=== PATIENT | male | born 1975 | race Caucasian/White ===

== ENCOUNTER 2016-05-23 13:35 | Emergency (ER) | payer BC ==
[2016-05-23 14:24] VITALS: BP 150/98
--- NOTE | 2016-05-23 15:41 | EDM.PDOC ---
ED HISTORY OF PRESENT ILLNESS - General Chief Complaint: Neck Problem Stated Complaint: NECK PAIN Time Seen by Provider: 05/23/16 15:36 Source: Reports: Patient, RN notes reviewed History Limitations: Reports: No limitations - History of Present Illness INITIAL COMMENTS - FREE TEXT/NARRATIVE: 40-year-old male with chronic neck pain. MRI of the neck on with findings of disc bulge at C4-5 just abutting the anterior cervical cord and osteophyte complex right side C5-6 Has been using tramadol for pain control with minimal success. Last took it at 9 AM No difficulty with ambulation and notes some tingling into the right shoulder area. Severity: severe Location, General: Reports: neck - Related Data Allergies/ADRs: Allergies Allergy/AdvReac Type Severity Reaction Status Date / Time No Known Allergies Allergy Verified 03/16/16 18:25 Home Meds: Home Meds Acetaminophen [Tylenol Extra Strength] 1,000 mg PO Q6H PRN 12/03/13 [History] Ibuprofen 800 mg PO TID PRN 12/03/13 [History] DULoxetine [Cymbalta] 120 mg PO DAILY 09/17/15 [History] traMADol [Ultram] 50 mg PO QID PRN 03/16/16 [History] Losartan [Cozaar] 100 mg PO DAILY 05/23/16 [History] Nebivolol [Bystolic] 10 mg PO DAILY 05/23/16 [History] amLODIPine Besylate [Amlodipine Besylate] 5 mg PO DAILY 05/23/16 [History] Past Medical History Cardiovascular History: Reports: Hypertension Gastrointestinal History: Reports: Irritable bowel syndrome Musculoskeletal History: Reports: Arthritis, Back pain, chronic, Neck pain, chronic Other Musculoskeletal History: bulging disc in neck Psychiatric History: Reports: Anxiety - Past Surgical History Neurological Surgical History: Reports: Spinal fusion, Other (see below) Other Neurological Surgeries/Procedures: L4-L5 disc replacement Musculoskeletal Surgical History: Reports: Other (see below) Other Musculoskeletal Surgeries/Procedures:: disc replacement L4,L5 Social & Family History - Family History Family Medical History: Noncontributory - Tobacco Use Smoking Status *Q: Never Smoker Years of Tobacco use: 20 Used Tobacco, but Quit: No Month Tobacco Last Used: august Second Hand Smoke Exposure: No - Caffeine Use Caffeine Use: Reports: Soda - Alcohol Use Days Per Week of Alcohol Use: 1 Number of Drinks Per Day: 2 Total Drinks Per Week: 2 - Recreational Drug Use Recreational Drug Use: No Drug Use in Last 12 Months: Yes Recreational Drug Type: Reports: Other (see below) Recreational Drug Use Frequency: Not Used In Over 5 Months ED ROS GENERAL - Review of Systems Review Of Systems: See Below Constitutional: Reports: no symptoms HEENT: Reports: No symptoms Respiratory: Reports: no symptoms Cardiovascular: Reports: No symptoms Endocrine: Reports: no symptoms GI/Abdominal: Reports: No symptoms : Reports: no symptoms Musculoskeletal: Reports: neck pain Skin: Reports: no symptoms Neurological: Reports: numbness, tingling Psychiatric: Reports: No symptoms ED EXAM, GENERAL - Physical Exam Exam: See Below Exam Limited By: No limitations General Appearance: alert, WD/WN, no apparent distress Neck: normal inspection, supple, limited range of motion, tender lateral, other (Holds neck very stiffly) Extremities: other (Has normal strength in deltoids biceps and triceps) Neurological: alert, oriented, CN II-XII intact, normal cognition Course - Vital Signs Text/Narrative:: Reviewed MRI accomplished in the last 3 days Patient with increased neck pain but no history of trauma Tramadol without good control of symptoms Placed in soft neck collar to reduce spasm Increased pain control to hydrocodone acetaminophen 5/325 one tablet every 6 hours when necessary pain Keep appointment to see Dr. Anjel Arenas this Last Recorded V/S: Last Vital Signs Temp 98.8 F 05/23/16 14:22 Pulse 86 05/23/16 14:22 Resp 14 05/23/16 14:22 BP 150/98 H 05/23/16 14:22 Pulse Ox 96 05/23/16 14:22 Departure - Departure Time of Disposition: 15:41 Disposition: Home, Self-Care 01 Condition: good Clinical Impression: Cervical disc disease Forms: ED Department Discharge Additional Instructions: Wear his soft collar x3 days Use hydrocodone for pain control See Dr. Arenas on
== END 2016-05-23 15:53 | disposition home or self-care (01) ==
LOC: JP.ED 13:35
DX: M50.90 Cervical disc disorder, unspecified, unspecified cervical region (principal); I10 Essential (primary) hypertension; Z79.899 Other long term (current) drug therapy; Z98.890 Other specified postprocedural states
CPT/HCPCS: 99283

== ENCOUNTER 2016-06-21 07:30 | Inpatient (IN) | payer BC, MEDICAID ==
[2016-06-30] MEDS: Lactated Ringers 1,000 ML IV SCH ×2 (06:32→13:18)
[2016-06-30] MEDS ORDERED: Povidone-Iodine 10% Soln 118.25 ML Bottle ONE (06:58)
[2016-06-30] MEDS ORDERED: Bupivacaine 0.5%/EPINEPHrine 1:200,000 50 ML MDV ONE (06:58)
[2016-06-30] MEDS ORDERED: Midazolam 1 MG/ML 2 ML SDV ONE (07:02)
[2016-06-30] MEDS ORDERED: fentaNYL 250 MCG/5 ML SDV ONE ×4 (07:02→09:48)
[2016-06-30] MEDS ORDERED: Propofol 200 MG/20 ML SDV ONE ×5 (07:02→09:59)
[2016-06-30] MEDS ORDERED: Ondansetron 4 MG/2 ML SDV ONE (07:02)
[2016-06-30] MEDS ORDERED: Succinylcholine/Normal Saline 200 MG/10 ML Syringe ONE (07:02)
[2016-06-30] MEDS ORDERED: Rocuronium 50 MG/5 ML Vial ONE (07:02)
[2016-06-30] MEDS ORDERED: Dexamethasone 4 MG/ML SDV ONE (07:02)
[2016-06-30] MEDS ORDERED: ceFAZolin 2 GM in Premix Bag 1 BAG IV ONE (07:15)
[2016-06-30] MEDS ORDERED: ceFAZolin 2 GM in Sodium Chloride 0.9% 50 ML IV ONE (07:15)
[2016-06-30] MEDS: Tranexamic Acid 1,000 MG in Sodium Chloride 0.9% 50 ML IV ONE ×2 (07:40→21:10)
[2016-06-30] MEDS ORDERED: Lactated Ringers 1,000 ML ONE (07:55)
[2016-06-30] MEDS: Thrombin (Bovine) 5,000 Unit Kit ONE ×2 (08:10→09:40)
[2016-06-30] MEDS ORDERED: Neostigmine Methylsulfate 1 MG/ML 5 ML Syringe ONE (08:20)
[2016-06-30] MEDS ORDERED: Tranexamic Acid 1,000 MG in Sodium Chloride 0.9% 50 ML IV ONE (10:30)
[2016-06-30] MEDS ORDERED: fentaNYL 100 MCG/2 ML SDV IVPUSH ONE (10:42)
[2016-06-30] MEDS ORDERED: Zolpidem 5 MG Tab PO PRN ×2 (10:53→11:43)
[2016-06-30] MEDS ORDERED: Naloxone 0.4 MG/ML SDV IVPUSH PRN ×2 (10:53)
[2016-06-30] MEDS ORDERED: Acetaminophen/oxyCODONE 325-5 MG Tab PO PRN (10:53)
[2016-06-30] MEDS ORDERED: Magnesium Hydroxide 400 MG/5 ML Susp 30 ML Cup PO PRN ×2 (10:53→11:43)
[2016-06-30] MEDS ORDERED: Aluminum Hydroxide/Magnesium Hydroxide/Simethicone Susp 30 ML Cup PO PRN ×2 (10:53→11:43)
[2016-06-30] MEDS ORDERED: Ondansetron 4 MG/2 ML SDV IVPUSH PRN ×2 (10:53→11:43)
[2016-06-30] MEDS ORDERED: Sodium Chloride 0.9% 10 ML Syringe FLUSH PRN ×2 (10:53→11:43)
[2016-06-30] MEDS ORDERED: HYDROmorphone 1 MG/ML Syringe IVPUSH PRN (10:53)
[2016-06-30] MEDS ORDERED: Sennosides 8.6 MG Tab PO PRN ×2 (10:53→11:43)
[2016-06-30] MEDS ORDERED: ceFAZolin 2 GM in Sodium Chloride 0.9% 50 ML IV SCH (11:00)
[2016-06-30] MEDS: HYDROmorphone 1 MG/ML Syringe IVPUSH PRN ×6 (11:40→23:43)
[2016-06-30] MEDS ORDERED: HYDROmorphone 1 MG/ML Syringe ONE (11:48)
[2016-06-30] MEDS: Acetaminophen/oxyCODONE 325-5 MG Tab PO PRN ×3 (12:19→20:42)
[2016-06-30] MEDS ORDERED: Benzocaine/Cetylpyridinium/Menthol Lozenge MUCMEM PRN (14:34)
[2016-06-30] MEDS ORDERED: Naloxone 0.4 MG/ML SDV ONE (15:16)
[2016-06-30] MEDS: hydrOXYzine HCl 25 MG Tab PO SCH ×2 (15:49→22:48)
[2016-06-30] MEDS ORDERED: Losartan 50 MG Tab PO ONE (16:00)
[2016-06-30] MEDS: Dexamethasone 4 MG/ML SDV IVPUSH SCH ×2 (16:05→22:50)
--- NOTE | 2016-06-30 16:05 | PCM.PN ---
- General Info Date of Service: 06/30/16 - Review of Systems HEENT: Reports: other (Neck pain) Pulmonary: Denies: shortness of breath Neurological: Denies: Numbness, Paresthesia, Tingling Systems Review Comment:: Iglesia isn't evaluated in the postoperative period. He is currently complaining of moderate to moderately severe right-sided neck pain in the area of his surgery. He currently does not have numbness or tingling that radiates down either arm or either leg. No paresthesias. No complaints of shortness of breath. Blood pressure has been moderately elevated but has been trending down after usual medications were administered. He does report that he was out of 2 of his blood pressure medications for approximately the last week. - Patient Data Vitals - most recent: Last Vital Signs Temp 36.4 C 06/30/16 14:20 Pulse 87 06/30/16 13:35 Resp 18 06/30/16 14:20 BP 141/96 H 06/30/16 15:57 Pulse Ox 96 06/30/16 14:20 Weight - most recent: 127.686 kg I&O - last 24 hours: Intake & Output 06/30/16 06/30/16 06/30/16 06:59 14:59 22:59 Intake Total 100 600 Output Total 0 Balance 100 600 Lab Results last 24 hrs: Laboratory Results - last 24 hr 06/30/16 Range/Units 06:00 Blood Type O POSITIVE Gel Antibody Screen Negative Med Orders - Current: Current Medications Al Hydroxide/Mg Hydroxide (Mag-Al Plus) 30 ml PO Q4H PRN PRN Reason: Indigestion Benzocaine/Menthol (Cepacol Sore Throat) 1 lozenge MUCMEM NOW PRN PRN Reason: Sore Throat Last Admin: 06/30/16 15:49 Dose: 1 tab Dexamethasone (Dexamethasone) 10 mg IVPUSH QID DERRICK Diazepam (Valium) 5 mg IVPUSH Q6H PRN PRN Reason: Spasms Last Admin: 06/30/16 12:18 Dose: 5 mg Hydromorphone HCl (Dilaudid) 1 mg IVPUSH Q2H PRN PRN Reason: Pain Last Admin: 06/30/16 14:27 Dose: 1 mg Hydroxyzine HCl (Atarax) 50 mg PO QID DERRICK Last Admin: 06/30/16 15:49 Dose: 50 mg Lactated Ringer's (Ringers, Lactated) 1,000 mls @ 0 mls/hr IV ASDIRECTED [facility] PRN Reason: KVO Last Admin: 06/30/16 13:18 Dose: 25 mls/hr Cefazolin Sodium 2 gm/ Sodium (Chloride) 50 mls @ 100 mls/hr IV Q8H [facility] Stop: 07/01/16 08:29 Losartan Potassium (Cozaar) 100 mg PO DAILY [facility] Magnesium Hydroxide (Milk Of Magnesia) 30 ml PO BID PRN PRN Reason: Constipation Nebivolol (Bystolic) 10 mg PO DAILY [facility] Ondansetron HCl (Zofran) 8 mg IVPUSH Q4H PRN PRN Reason: Nausea/Vomiting Last Admin: 06/30/16 14:26 Dose: 8 mg Oxycodone/Acetaminophen (Percocet 325-5 Mg) 2 tab PO Q4H PRN PRN Reason: Pain Last Admin: 06/30/16 12:19 Dose: 2 tab Senna (Senna) 8.6 mg PO BID PRN PRN Reason: Constipation Sodium Chloride (Saline Flush) 10 ml FLUSH ASDIRECTED PRN PRN Reason: Keep Vein Open Zolpidem Tartrate (Ambien) 5 mg PO BEDTIME PRN PRN Reason: Sleep Discontinued Medications Al Hydroxide/Mg Hydroxide (Mag-Al Plus) 30 ml PO Q4H PRN PRN Reason: Indigestion Bupivacaine HCl/Epinephrine Bitart (Marcaine 0.5%/Epinephrine 1:200,000) Confirm Administered Dose 50 ml .ROUTE .STK-MED ONE Stop: 06/30/16 06:59 Last Admin: 06/30/16 08:38 Dose: 10 ml Dexamethasone (Dexamethasone) Confirm Administered Dose 4 mg .ROUTE .STK-MED ONE Stop: 06/30/16 07:03 Diazepam (Valium) 5 mg IVPUSH Q6H PRN PRN Reason: Spasms Fentanyl (Sublimaze) Confirm Administered Dose 500 mcg .ROUTE .STK-MED ONE Stop: 06/30/16 07:03 Fentanyl (Sublimaze) Confirm Administered Dose 250 mcg .ROUTE .STK-MED ONE Stop: 06/30/16 07:55 Fentanyl (Sublimaze) Confirm Administered Dose 250 mcg .ROUTE .STK-MED ONE Stop: 06/30/16 08:20 Fentanyl (Sublimaze) Confirm Administered Dose 250 mcg .ROUTE .STK-MED ONE Stop: 06/30/16 09:49 Fentanyl (Sublimaze) 100 mcg IVPUSH ONETIME ONE Stop: 06/30/16 10:43 Last Admin: 06/30/16 10:48 Dose: 100 mcg Glycopyrrolate () Confirm Administered Dose 1 mg .ROUTE .STK-MED ONE Stop: 06/30/16 08:21 Hydromorphone HCl (Dilaudid) 1 mg IVPUSH Q2H PRN PRN Reason: Pain Cefazolin Sodium 2 gm/ Sodium (Chloride) 50 mls @ 100 mls/hr IV ONETIME ONE Stop: 06/30/16 07:44 Last Admin: 06/30/16 07:19 Dose: 100 mls/hr Tranexamic Acid 1,000 mg/ (Sodium Chloride) 60 mls @ 240 mls/hr IV ONETIME ONE Stop: 06/30/16 07:59 Last Admin: 06/30/16 07:40 Dose: 240 mls/hr Tranexamic Acid 1,000 mg/ (Sodium Chloride) 60 mls @ 240 mls/hr IV ONETIME ONE Stop: 06/30/16 10:44 Last Admin: 06/30/16 10:41 Dose: 240 mls/hr Lactated Ringer's (Ringers, Lactated) Confirm Administered Dose 1,000 mls @ as directed .ROUTE .STK-MED ONE Stop: 06/30/16 07:56 Cefazolin Sodium 2 gm/ Sodium (Chloride) 50 mls @ 100 mls/hr IV Q8H [facility] Stop: 07/01/16 03:29 Losartan Potassium (Cozaar) 100 mg PO ONETIME ONE Stop: 06/30/16 16:01 Last Admin: 06/30/16 15:57 Dose: 100 mg Magnesium Hydroxide (Milk Of Magnesia) 30 ml PO BID PRN PRN Reason: Constipation Midazolam HCl (Versed 1 Mg/Ml) Confirm Administered Dose 2 mg .ROUTE .STK-MED ONE Stop: 06/30/16 07:03 Naloxone HCl (Narcan) 0.2 mg IVPUSH ONETIME PRN PRN Reason: Oversedation Stop: 06/30/16 10:54 Naloxone HCl (Narcan) 0.2 mg IVPUSH ONETIME PRN PRN Reason: Oversedation Stop: 06/30/16 10:54 Naloxone HCl (Narcan) Confirm Administered Dose 0.4 mg .ROUTE .STK-MED ONE Stop: 06/30/16 15:17 Nebivolol (Bystolic) 10 mg PO ONETIME ONE Stop: 06/30/16 16:01 Neostigmine Methylsulfate (Neostigmine) Confirm Administered Dose 5 mg .ROUTE .STK-MED ONE Stop: 06/30/16 08:21 Ondansetron HCl (Zofran) Confirm Administered Dose 4 mg .ROUTE .STK-MED ONE Stop: 06/30/16 07:03 Ondansetron HCl (Zofran) 8 mg IVPUSH Q4H PRN PRN Reason: Nausea/Vomiting Oxycodone/Acetaminophen (Percocet 325-5 Mg) 2 tab PO Q4H PRN PRN Reason: Pain Povidone Iodine (Betadine 10% Soln) Confirm Administered Dose 1 ml .ROUTE .STK- MED ONE Stop: 06/30/16 06:59 Propofol (Diprivan 20 Ml) Confirm Administered Dose 200 mg .ROUTE .STK-MED ONE Stop: 06/30/16 07:03 Propofol (Diprivan 20 Ml) Confirm Administered Dose 600 mg .ROUTE .STK-MED ONE Stop: 06/30/16 07:37 Propofol (Diprivan 20 Ml) Confirm Administered Dose 600 mg .ROUTE .STK-MED ONE Stop: 06/30/16 08:19 Propofol (Diprivan 20 Ml) Confirm Administered Dose 600 mg .ROUTE .STK-MED ONE Stop: 06/30/16 09:04 Propofol (Diprivan 20 Ml) Confirm Administered Dose 200 mg .ROUTE .STK-MED ONE Stop: 06/30/16 10:00 Rocuronium Seligman (Zemuron) Confirm Administered Dose 50 mg .ROUTE .STK-MED ONE Stop: 06/30/16 07:03 Senna (Senna) 8.6 mg PO BID PRN PRN Reason: Constipation Sodium Chloride (Saline Flush) 10 ml FLUSH ASDIRECTED PRN PRN Reason: Keep Vein Open Succinylcholine Chloride (Succinylcholine In Ns Pf) Confirm Administered Dose 200 mg .ROUTE .STK-MED ONE Stop: 06/30/16 07:03 Thrombin (Thrombin-Jmi) Confirm Administered Dose 10,000 unit .ROUTE .STK-MED ONE Stop: 06/30/16 06:58 Last Admin: 06/30/16 09:40 Dose: 5,000 unit Zolpidem Tartrate (Ambien) 5 mg PO BEDTIME PRN PRN Reason: Sleep - Exam Quality Assessment: No: supplemental oxygen General: alert, oriented, cooperative, mild distress Neck: supple, other (Dry intact surgical dressing right lateral neck) Lungs: Clear to auscultation, Normal respiratory effort Cardiovascular: Regular Rate, Regular Rhythm Abdomen: soft, no distension Extremities: no edema, no cyanosis Skin: warm, dry Psy/Mental Status: alert, normal affect - Problem List Review Problem List Initiated/Reviewed/Updated: Yes - Plan Plan:: Assessment and Plan - Status post C4-5/C5-6 fusion with anterior approach - moderate pain but otherwise clinically doing well. -Postop cares per orthopedic services and Essential hypertension - monitor blood pressure elevation postoperatively but seems to be improving with pain control. He did receive his usual antihypertensives but later in the day than usual. -Continue home meds Chronic pain syndrome - history of chronic neck and back pain. Hopefully the surgery will help with his chronic back pain. He should be receiving plenty of coverage for his chronic pain with current acute pain management. Disposition - anticipate discharge to home after the hospital stay Daniel Hairston M.D.
[2016-06-30] MEDS: ceFAZolin 2 GM in Sodium Chloride 0.9% 50 ML IV SCH ×2 (16:30→23:43)
--- NOTE | 2016-06-30 17:14 | OR ---
DATE OF PROCEDURE: 06/30/2016 PREOPERATIVE DIAGNOSIS: Cervical stenosis C4-5 and C5-6. POSTOPERATIVE DIAGNOSIS: Cervical stenosis C4-5 and C5-6. PROCEDURE: 1. C4-5 and C5-6 anterior cervical diskectomy and fusion. 2. Placement of interbody devices at C4-5 and C5-6. 3. Segmental fixation C4-5 and C5-6. 4. Use of operative microscope [id number]. CLIENT EXPERIENCE ADMINISTRATOR: Irma Koroma NP. FLUID: Lactated Ringer solution. ESTIMATED BLOOD LOSS: 25 mL. COMPLICATIONS: None. SPECIMEN: None. DISCHARGE DISPOSITION: Stable to PACU. HISTORY AND INDICATIONS FOR THE PROCEDURE: The patient was seen preoperatively in the clinic. He had failed nonoperative treatment. Preoperative imaging confirmed the above- mentioned diagnosis. Risks and benefits of procedure were explained to the patient. Informed consent was obtained. DETAILS OF PROCEDURE: The patient was seen preoperatively by myself and the anesthesia staff in the preoperative holding area where the operative site was marked. He was brought to the operative suite by the anesthesia staff where general anesthesia was administered. The patient was then positioned with all extremities well padded. His arms were tucked at the side after neuro monitoring leads had been placed. I did use a blanket under his shoulders and then taped his shoulders to his side making sure that the neck was in neutral extension. We then took a fluoroscopy image confirming that his neck was in usual extension that we could see the vertebral bodies. The patient was then prepped and draped in a sterile manner. Time-out was called identifying the correct patient, correct procedure, the correct site, and the antibiotics had been within an appropriate period of time. The fluoroscopy end was sterilely draped. The microscope was sterilely draped. Lateral fluoroscopy was used to visualize the C5-6 intervertebral space using a #1 Paia. I then made an oblique incision just lateral to the sternocleidomastoid muscle extending approximately 2.5 inches. This was carried down to the platysma. Bleeding was controlled with Bovie electrocautery. Weitlaner retractor was used for a traction. I then went through the platysma with Bovie electrocautery. The external jugular was identified running right to the middle of our incision. I used a two 3-0 silk sutures to ligate the external jugular. No bleeding was encountered. The remainder of the incision was carried out with Bovie electrocautery and bipolar electrocautery. I then used blunt dissection down to the prevertebral space and then palpated what I thought was the C4-5 interval. We then took fluoroscopic image, thought it was the C5-6 interval, it was C6-7. I then moved up to C5-6 and confirmed the correct level before any further dissection takes place. After confirming the C5-6 level, I then used the Cloward for retraction, and carefully I released the insertion of the longus colli muscles on the medial insertions and exposed the disk space with Bovie electrocautery. I then used a 15 blade to incise the C5-6 anterior annulus and then removed as much of this as I could using pituitaries followed by curette and #3 Kerrison using and removing as well a portion of the anterior-inferior lip of the superior vertebral body. After this had been accomplished, and we were down to the posterior longitudinal ligament, I then placed a small amount of thrombin-soaked Gelfoam in the back of the intervertebral space and then repeated the procedure at C4-5. After removing our retractors, I did use the Shadow-line retractor after exposing the space better after the Cloward was used. After preparing the C4-5 interspace, I then brought in the operating microscope and removed any extra disk material that was visualized as well as undermining the inferior-posterior lip of the superior vertebral body with a 3-0 angle curette and then removing that lip with #2 Kerrison's. I then removed the superior-posterior lip of the inferior vertebral body and then divided the posterior longitudinal ligament. I then brought the curette out the foramen bilaterally to ensure that they were free. I then prepared the disk space and left a small amount of autograft within the disk space and then trialed up to a 9, and then placed a 9 globus Coalition implant which was 7 degrees 12 x 14 as well as some Signify Bioactive Crunch. In the implant, I confirmed good placement and then placed two 16 mm screws ensuring that they did not violate the posterior vertebral body. We then moved down to C5-6 and performed the same procedure with the operating microscope trialing again to a 9 and inserting the 9 mm Coalition implant 7 degree 12 x 14 and inserted two 16 mm screws. After this had been completed, we took final films. I then copiously irrigated with 2 L of Betadine infused irrigation. I took time to ensure that there was no bleeding at the medial portion of the longus colli muscles. If there was, it was controlled by bipolar electrocautery. We then inserted some FloSeal and after waiting 1- 2 minutes, inserted Ray-Manohar to remove any excess FloSeal. After this had been accomplished, I placed a drain in the prevertebral space. I carried out the lateral aspect of the incision and then placed three 2-0 Vicryl sutures through the platysma followed by 3-0 Monocryl subcuticular sutures followed by Steri-Strips and a sterile dressing. The patient was allowed to awaken from general anesthesia and taken to the PACU in stable condition. Kevin Arenas DO /[id number]
[2016-07-01] MEDS: Acetaminophen/oxyCODONE 325-5 MG Tab PO PRN ×2 (00:54→05:14)
[2016-07-01] MEDS: HYDROmorphone 1 MG/ML Syringe IVPUSH PRN ×3 (01:47→07:34)
[2016-07-01] MEDS: Dexamethasone 4 MG/ML SDV IVPUSH SCH ×2 (05:15→09:18)
[2016-07-01] MEDS: hydrOXYzine HCl 25 MG Tab PO SCH ×2 (05:15→09:16)
[2016-07-01 07:33] VITALS: BP 115/90
[2016-07-01] MEDS: ceFAZolin 2 GM in Sodium Chloride 0.9% 50 ML IV SCH (08:20)
[2016-07-01] MEDS ORDERED: Losartan 50 MG Tab PO SCH (09:00)
--- NOTE | 2016-07-01 09:00 | PCM.DCSUM1 ---
Discharge Summary - Discharge Data Discharge Date: 07/01/16 Discharge Disposition: Home, Self-Care 01 Condition: Good - Discharge Diagnosis/Problem(s) (1) Status post cervical discectomy SNOMED Code(s): 313891585, [id number] ICD Code: Z98.890 - OTHER SPECIFIED POSTPROCEDURAL STATES Status: Acute Current Visit: Yes Problem Details: Fision - Patient Summary/Data Consults: Consultations 06/30/16 10:53 OT Evaluation and Treatment [CONS] Routine Please Evaluate and Treat. OT Reason for Consult: Strengthening This query below is only for informational purposes and is not editable. PT Evaluation and Treatment [CONS] Routine Please Evaluate and Treat. PT Reason for Consult: Strengthening This query below is only for informational purposes and is not editable. - Patient Instructions Diet: Regular Diet as Tolerated Activity: Apply Ice, As Tolerated Driving: May Drive Today (If not on any pain medication) Showering/Bathing: May Shower Wound/Incision Care: Keep Operative Site/Wound Site Clean and Dry, Change Dressing Daily Notify Provider of: Fever, Increased Pain, Swelling and Redness - Discharge Plan Prescriptions/Med Rec: Acetaminophen/oxyCODONE [Percocet 325-5 MG] 1 tab PO Q4H PRN #90 tablet PRN Reason: Pain Diazepam [Valium] 5 mg PO BID #50 tablet hydrOXYzine HCl [hydrOXYzine] 50 mg PO QID PRN #60 tablet PRN Reason: Spasms Home Medications: Home Meds Acetaminophen [Tylenol Extra Strength] 1,000 mg PO Q6H PRN 12/03/13 [History] Ibuprofen 800 mg PO TID PRN 12/03/13 [History] DULoxetine [Cymbalta] 120 mg PO DAILY 09/17/15 [History] traMADol [Ultram] 50 mg PO QID PRN 03/16/16 [History] Losartan [Cozaar] 100 mg PO DAILY 05/23/16 [History] Nebivolol [Bystolic] 10 mg PO DAILY 05/23/16 [History] amLODIPine Besylate [Amlodipine Besylate] 5 mg PO DAILY 05/23/16 [History] Acetaminophen/oxyCODONE [Percocet 325-5 MG] 1 tab PO Q4H PRN #90 tablet [Rx] Diazepam [Valium] 5 mg PO BID #50 tablet 07/01/16 [Rx] Losartan [Cozaar] 100 mg PO DAILY tablet 07/01/16 [Rx] hydrOXYzine HCl [hydrOXYzine] 50 mg PO QID PRN #60 tablet 07/01/16 [Rx] Referrals: Kevin Arenas DO [Physician] - (Follow up with ortho in 2 weeks. ) - Discharge Summary/Plan Comment Discharge Summary/Plan Comment: Patient is doing well. Assessment is negative. He is ambulating well. Pain is managed with pain medication. He is to continue to improve his ambulation and pain throughout the day and will be discharged later today. - Patient Data Vitals - Most Recent: Last Vital Signs Temp 36.6 C 07/01/16 07:29 Pulse 98 07/01/16 08:21 Resp 16 07/01/16 07:29 BP 115/90 07/01/16 08:22 Pulse Ox 90 L 07/01/16 07:51 Weight - Most Recent: 281 lb 8 oz I&O - Last 24 hours: Intake & Output 06/30/16 07/01/16 07/01/16 22:59 06:59 14:59 Intake Total 1768 2155 620 Output Total 1975 1200 550 Balance -207 955 70 Lab Results - Last 24 hrs: Laboratory Results - last 24 hr 07/01/16 07/01/16 Range/Units 05:30 05:30 WBC 18.9 H (4.5-11.0) K/uL RBC 5.03 (4.30-5.90) M/uL Hgb 14.7 (12.0-15.0) g/dL Hct 41.8 (40.0-54.0) % MCV 83 (80-98) fL MCH 29 (27-31) pg MCHC 35 (32-36) % Plt Count 370 (150-400) K/uL Neut % (Auto) 88 H (36-66) % Lymph % (Auto) 8 L (24-44) % [place] % (Auto) 4 (2-6) % Eos % (Auto) 0 L (2-4) % Baso % (Auto) 0 (0-1) % Sodium 141 (140-148) mmol/L Potassium 4.1 (3.6-5.2) mmol/L Chloride 104 (100-108) mmol/L Carbon Dioxide 28 (21-32) mmol/L Anion Gap 9.3 (5.0-14.0) mmol/L BUN 12 (7-18) mg/dL Creatinine 1.0 (0.8-1.3) mg/dL Est Cr Clr Drug Dosing 101.39 mL/min Estimated GFR (MDRD) > 60 (>60) Glucose 161 H (74-106) mg/dL Calcium 8.5 (8.5-10.1) mg/dL Med Orders - Current: Current Medications Al Hydroxide/Mg Hydroxide (Mag-Al Plus) 30 ml PO Q4H PRN PRN Reason: Indigestion Benzocaine/Menthol (Cepacol Sore Throat) 1 lozenge MUCMEM NOW PRN PRN Reason: Sore Throat Last Admin: 06/30/16 15:49 Dose: 1 tab Dexamethasone (Dexamethasone) 10 mg IVPUSH QID [facility] Stop: 07/01/16 10:01 Last Admin: 07/01/16 05:15 Dose: 10 mg Diazepam (Valium) 5 mg IVPUSH Q6H PRN PRN Reason: Spasms Last Admin: 07/01/16 03:18 Dose: 5 mg Hydromorphone HCl (Dilaudid) 1 mg IVPUSH Q2H PRN PRN Reason: Pain Last Admin: 07/01/16 07:34 Dose: 1 mg Hydroxyzine HCl (Atarax) 50 mg PO QID [facility] Last Admin: 07/01/16 05:15 Dose: 50 mg Lactated Ringer's (Ringers, Lactated) 1,000 mls @ 0 mls/hr IV ASDIRECTED [facility] PRN Reason: KVO Last Admin: 06/30/16 13:18 Dose: 25 mls/hr Losartan Potassium (Cozaar) 100 mg PO DAILY [facility] Last Admin: 07/01/16 08:22 Dose: 100 mg Magnesium Hydroxide (Milk Of Magnesia) 30 ml PO BID PRN PRN Reason: Constipation Nebivolol (Bystolic) 10 mg PO DAILY [facility] Last Admin: 07/01/16 08:21 Dose: 10 mg Ondansetron HCl (Zofran) 8 mg IVPUSH Q4H PRN PRN Reason: Nausea/Vomiting Last Admin: 06/30/16 14:26 Dose: 8 mg Oxycodone/Acetaminophen (Percocet 325-5 Mg) 2 tab PO Q4H PRN PRN Reason: Pain Last Admin: 07/01/16 05:14 Dose: 2 tab Senna (Senna) 8.6 mg PO BID PRN PRN Reason: Constipation Sodium Chloride (Saline Flush) 10 ml FLUSH ASDIRECTED PRN PRN Reason: Keep Vein Open Zolpidem Tartrate (Ambien) 5 mg PO BEDTIME PRN PRN Reason: Sleep Discontinued Medications Al Hydroxide/Mg Hydroxide (Mag-Al Plus) 30 ml PO Q4H PRN PRN Reason: Indigestion Bupivacaine HCl/Epinephrine Bitart (Marcaine 0.5%/Epinephrine 1:200,000) Confirm Administered Dose 50 ml .ROUTE .STK-MED ONE Stop: 06/30/16 06:59 Last Admin: 06/30/16 08:38 Dose: 10 ml Dexamethasone (Dexamethasone) Confirm Administered Dose 4 mg .ROUTE .STK-MED ONE Stop: 06/30/16 07:03 Diazepam (Valium) 5 mg IVPUSH Q6H PRN PRN Reason: Spasms Fentanyl (Sublimaze) Confirm Administered Dose 500 mcg .ROUTE .STK-MED ONE Stop: 06/30/16 07:03 Fentanyl (Sublimaze) Confirm Administered Dose 250 mcg .ROUTE .STK-MED ONE Stop: 06/30/16 07:55 Fentanyl (Sublimaze) Confirm Administered Dose 250 mcg .ROUTE .STK-MED ONE Stop: 06/30/16 08:20 Fentanyl (Sublimaze) Confirm Administered Dose 250 mcg .ROUTE .STK-MED ONE Stop: 06/30/16 09:49 Fentanyl (Sublimaze) 100 mcg IVPUSH ONETIME ONE Stop: 06/30/16 10:43 Last Admin: 06/30/16 10:48 Dose: 100 mcg Glycopyrrolate () Confirm Administered Dose 1 mg .ROUTE .STK-MED ONE Stop: 06/30/16 08:21 Hydromorphone HCl (Dilaudid) 1 mg IVPUSH Q2H PRN PRN Reason: Pain Cefazolin Sodium 2 gm/ Sodium (Chloride) 50 mls @ 100 mls/hr IV ONETIME ONE Stop: 06/30/16 07:44 Last Admin: 06/30/16 07:19 Dose: 100 mls/hr Tranexamic Acid 1,000 mg/ (Sodium Chloride) 60 mls @ 240 mls/hr IV ONETIME ONE Stop: 06/30/16 07:59 Last Admin: 06/30/16 21:10 Dose: Not Given Tranexamic Acid 1,000 mg/ (Sodium Chloride) 60 mls @ 240 mls/hr IV ONETIME ONE Stop: 06/30/16 10:44 Last Admin: 06/30/16 10:41 Dose: 240 mls/hr Lactated Ringer's (Ringers, Lactated) Confirm Administered Dose 1,000 mls @ as directed .ROUTE .STK-MED ONE Stop: 06/30/16 07:56 Cefazolin Sodium 2 gm/ Sodium (Chloride) 50 mls @ 100 mls/hr IV Q8H DERRICK Stop: 07/01/16 03:29 Last Admin: 06/30/16 23:25 Dose: Not Given Cefazolin Sodium 2 gm/ Sodium (Chloride) 50 mls @ 100 mls/hr IV Q8H DERRICK Stop: 07/01/16 08:29 Last Admin: 07/01/16 08:20 Dose: 100 mls/hr Losartan Potassium (Cozaar) 100 mg PO ONETIME ONE Stop: 06/30/16 16:01 Last Admin: 06/30/16 15:57 Dose: 100 mg Magnesium Hydroxide (Milk Of Magnesia) 30 ml PO BID PRN PRN Reason: Constipation Midazolam HCl (Versed 1 Mg/Ml) Confirm Administered Dose 2 mg .ROUTE .STK-MED ONE Stop: 06/30/16 07:03 Naloxone HCl (Narcan) 0.2 mg IVPUSH ONETIME PRN PRN Reason: Oversedation Stop: 06/30/16 10:54 Naloxone HCl (Narcan) 0.2 mg IVPUSH ONETIME PRN PRN Reason: Oversedation Stop: 06/30/16 10:54 Naloxone HCl (Narcan) Confirm Administered Dose 0.4 mg .ROUTE .STK-MED ONE Stop: 06/30/16 15:17 Nebivolol (Bystolic) 10 mg PO ONETIME ONE Stop: 06/30/16 16:01 Last Admin: 06/30/16 16:10 Dose: 10 mg Neostigmine Methylsulfate (Neostigmine) Confirm Administered Dose 5 mg .ROUTE .STK-MED ONE Stop: 06/30/16 08:21 Ondansetron HCl (Zofran) Confirm Administered Dose 4 mg .ROUTE .STK-MED ONE Stop: 06/30/16 07:03 Ondansetron HCl (Zofran) 8 mg IVPUSH Q4H PRN PRN Reason: Nausea/Vomiting Oxycodone/Acetaminophen (Percocet 325-5 Mg) 2 tab PO Q4H PRN PRN Reason: Pain Povidone Iodine (Betadine 10% Soln) Confirm Administered Dose 1 ml .ROUTE .STK- MED ONE Stop: 06/30/16 06:59 Propofol (Diprivan 20 Ml) Confirm Administered Dose 200 mg .ROUTE .STK-MED ONE Stop: 06/30/16 07:03 Propofol (Diprivan 20 Ml) Confirm Administered Dose 600 mg .ROUTE .STK-MED ONE Stop: 06/30/16 07:37 Propofol (Diprivan 20 Ml) Confirm Administered Dose 600 mg .ROUTE .STK-MED ONE Stop: 06/30/16 08:19 Propofol (Diprivan 20 Ml) Confirm Administered Dose 600 mg .ROUTE .STK-MED ONE Stop: 06/30/16 09:04 Propofol (Diprivan 20 Ml) Confirm Administered Dose 200 mg .ROUTE .STK-MED ONE Stop: 06/30/16 10:00 Rocuronium [place] (Zemuron) Confirm Administered Dose 50 mg .ROUTE .STK-MED ONE Stop: 06/30/16 07:03 Senna (Senna) 8.6 mg PO BID PRN PRN Reason: Constipation Sodium Chloride (Saline Flush) 10 ml FLUSH ASDIRECTED PRN PRN Reason: Keep Vein Open Succinylcholine Chloride (Succinylcholine In Ns Pf) Confirm Administered Dose 200 mg .ROUTE .STK-MED ONE Stop: 06/30/16 07:03 Thrombin (Thrombin-Jmi) Confirm Administered Dose 10,000 unit .ROUTE .STK-MED ONE Stop: 06/30/16 06:58 Last Admin: 06/30/16 09:40 Dose: 5,000 unit Zolpidem Tartrate (Ambien) 5 mg PO BEDTIME PRN PRN Reason: Sleep *Q Meaningful Use (DIS) - VTE *Q VTE Criteria *Q: - Stroke *Q Stroke Criteria *Q: - AMI *Q AMI Criteria *Q:
== END 2016-07-01 11:00 | disposition home or self-care (01) | DRG 321 ==
LOC: JP.MS 06-30 05:38 → JP.SDS 06-30 05:38 → EDSTATUS 06-30 10:30 → JP.MS 06-30 11:39
PROVIDERS: ADMIT Orthopaedic Surgery; ATTEND Orthopaedic Surgery
PROC: 0RB30ZZ Excision of Cervical Vertebral Disc, Open Approach (ICD-10-PCS; principal; 2016-06-30)
PROC: 0RG20A0 Fusion of 2 or more Cervical Vertebral Joints with Interbody Fusion Device, Anterior Approach, Anterior Column, Open Approach (ICD-10-PCS; principal; 2016-06-30)
DX: M48.02 Spinal stenosis, cervical region (principal); I10 Essential (primary) hypertension; F41.9 Anxiety disorder, unspecified; F32.9 Major depressive disorder, single episode, unspecified; E66.9 Obesity, unspecified; Z88.8 Allergy status to other drugs, medicaments and biological substances; M54.9 Dorsalgia, unspecified; G89.29 Other chronic pain; G43.909 Migraine, unspecified, not intractable, without status migrainosus
CPT/HCPCS: 36415; 76001; 80048; 85025; 86850; 86900; 86901; 94762; 97162-GP; 97165-GO; 97530-GP; 97535-GP; A9270-GY; C1713; J0690; J1100; J1170; J2250; J2310; J2405; J2704; J3010; J3360; J7050; J7120

== ENCOUNTER 2016-07-11 18:09 | Emergency (ER) | payer BC, MEDICAID ==
[2016-07-11 20:03] VITALS: BP 139/93
--- NOTE | 2016-07-11 20:53 | EDM.PDOC ---
ED UPPER BACK/NECK PAIN/INJURY - General Chief Complaint: Neck Problem Stated Complaint: COMPLICATIONS FROM NECK SURGERY Time Seen by Provider: 07/11/16 19:09 Source: Reports: Patient, Other (Dr. Kevin beebe) History Limitations: Reports: No limitations - History of Present Illness INITIAL COMMENTS - FREE TEXT/NARRATIVE: This patient had neck surgery recently by Dr. Tres Beebe. He was treated with Percocet. Dr. Beebe said that he went through a months worth of Percocet in 2 weeks and then got some more from Dr. Desouza. The patient ran out of meds about 2 or 3 days ago. He's experiencing a lot more neck pain and then experiencing withdrawal symptoms. He complains of getting shaky he's also having sweats and some abdominal cramps and nausea. He claimed to be taking about 6-7 tablets per day. - Related Data Allergies/ADRs: Allergies Allergy/AdvReac Type Severity Reaction Status Date / Time No Known Allergies Allergy Verified 03/16/16 18:25 Home Meds: Home Meds Acetaminophen [Tylenol Extra Strength] 1,000 mg PO Q6H PRN 12/03/13 [History] Ibuprofen 800 mg PO TID PRN 12/03/13 [History] DULoxetine [Cymbalta] 120 mg PO DAILY 09/17/15 [History] traMADol [Ultram] 50 mg PO QID PRN 03/16/16 [History] Losartan [Cozaar] 100 mg PO DAILY 05/23/16 [History] Nebivolol [Bystolic] 10 mg PO DAILY 05/23/16 [History] amLODIPine Besylate [Amlodipine Besylate] 5 mg PO DAILY 05/23/16 [History] Acetaminophen/oxyCODONE [Percocet 325-5 MG] 1 tab PO Q4H PRN #90 tablet [Rx] Diazepam [Valium] 5 mg PO BID #50 tablet 07/01/16 [Rx] hydrOXYzine HCl [hydrOXYzine] 50 mg PO QID PRN #60 tablet 07/01/16 [Rx] Past Medical History Cardiovascular History: Reports: Hypertension, SOB on exertion Gastrointestinal History: Reports: Chronic diarrhea, Colon polyp, Hemorrhoids, Irritable bowel syndrome Musculoskeletal History: Reports: Arthritis, Back pain, chronic, Neck pain, chronic Other Musculoskeletal History: bulging disc in neck Neurological History: Reports: Migraines Psychiatric History: Reports: Anxiety, Depression Endocrine/Metabolic History: Reports: Obesity/BMI 30+ - Infectious Disease History Infectious Disease History: Reports: Chicken pox - Past Surgical History Cardiovascular Surgical History: Reports: None GI Surgical History: Reports: Colonoscopy, Polypectomy Endocrine Surgical History: Reports: None Neurological Surgical History: Reports: Spinal fusion, Other (see below) Other Neurological Surgeries/Procedures: L4-L5 disc replacement Musculoskeletal Surgical History: Reports: Ganglion cyst, Other (see below) Other Musculoskeletal Surgeries/Procedures:: disc replacement L4,L5 Social & Family History - Family History Family Medical History: Noncontributory Cardiac: Reports: High cholesterol, Hypertension GI: Reports: Other (see below) Other GI Family History: colitis Oncologic: Reports: Skin - Tobacco Use Smoking Status *Q: Former Smoker Years of Tobacco use: 12 Used Tobacco, but Quit: Yes Month Tobacco Last Used: 06/2016 Second Hand Smoke Exposure: No - Caffeine Use Caffeine Use: Reports: Soda - Alcohol Use Days Per Week of Alcohol Use: 1 Number of Drinks Per Day: 3 Total Drinks Per Week: 3 - Recreational Drug Use Recreational Drug Use: No Drug Use in Last 12 Months: Yes Recreational Drug Type: Reports: Other (see below) Recreational Drug Use Frequency: Not Used In Over 5 Months ED ROS GENERAL - Review of Systems Review Of Systems: ROS reveals no pertinent complaints other than HPI. ED EXAM, UPPER BACK/NECK PAIN - Physical Exam Exam: See Below Exam Limited By: No limitations General Appearance: alert, WD/WN, mild distress Neck Exam: other (There's a recent incision to the anterior part of the neck at the base to the right of midline. It's healing well. His neck is moderately stiff but that's what I would expect after surgery.) Cardiovascular/Respiratory: regular rate, rhythm, normal breath sounds Neurologic: no motor/sensory deficits, alert, normal mood/affect Psychiatric: normal affect Skin Exam: Normal color Course - Vital Signs Last Recorded V/S: Last Vital Signs Temp 36.8 C 07/11/16 19:22 Pulse 122 H 07/11/16 19:59 Resp 16 07/11/16 19:59 BP 139/93 H 07/11/16 19:59 Pulse Ox 96 07/11/16 19:59 - Re-Assessments/Exams Free Text/Narrative Re-Assessment/Exam: 07/11/16 20:54 The case was discussed with Dr. Beebe and Dr. Mathur. The plan will be to give him 10 tablets of Percocet 5 and he is to limit himself to one tablet every [address] 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 Departure - Departure Time of Disposition: 20:55 Disposition: Home, Self-Care 01 Condition: fair Clinical Impression: Opiate withdrawal Forms: ED Department Discharge Additional Instructions: Take the Percocet 5/325, #10, one tablet every 4 hours. This is primarily to manage her withdrawal symptoms. You probably will still have neck pain. Dr. Beebe's office will call you on Tuesday regarding a new prescription. If not already doing so you can take either ibuprofen or naproxen, but not both. You can take up to double the [id number] dose which would be consistent with prescription strength. It's okay to take this with Percocet
== END 2016-07-11 21:07 | disposition home or self-care (01) ==
LOC: JP.ED 18:09
DX: F11.23 Opioid dependence with withdrawal (principal); I10 Essential (primary) hypertension; F41.9 Anxiety disorder, unspecified; F32.9 Major depressive disorder, single episode, unspecified; E66.9 Obesity, unspecified; Z68.39 Body mass index [BMI] 39.0-39.9, adult; Z79.899 Other long term (current) drug therapy; Z98.1 Arthrodesis status; Z98.890 Other specified postprocedural states; Z87.891 Personal history of nicotine dependence
CPT/HCPCS: 99283; 99284

== ENCOUNTER 2016-07-29 12:40 | Emergency (ER) | payer BC, MEDICAID ==
[2016-07-29] MEDS ORDERED: Meperidine PF 75 MG/ML Syringe IM ONE (14:27)
[2016-07-29] MEDS ORDERED: hydrOXYzine HCl 50 MG/ML SDV IM ONE (14:28)
--- NOTE | 2016-07-29 14:29 | EDM.PDOC ---
ED HPI GENERAL MEDICAL PROBLEM - General Chief Complaint: Back Pain or Injury Stated Complaint: NECK AND BACK PAIN Time Seen by Provider: 07/29/16 14:28 Source of Information: Reports: Patient, Family History Limitations: Reports: No Limitations - History of Present Illness INITIAL COMMENTS - FREE TEXT/NARRATIVE: pt arrived with a history of increased pain in the post cervical area. He is concerned about an infection. Onset: gradual, other ( increased pain) Duration: Day(s):, Getting worse Location: Reports: neck Associated Symptoms: Reports: denies other symptoms Neck Pain Score (Numeric/FACES): 8 - Related Data Allergies Allergy/AdvReac Type Severity Reaction Status Date / Time No Known Allergies Allergy Verified 07/29/16 13:12 Home Meds: Home Meds Acetaminophen [Tylenol Extra Strength] 1,000 mg PO Q6H PRN 12/03/13 [History] Ibuprofen 800 mg PO TID PRN 12/03/13 [History] DULoxetine [Cymbalta] 120 mg PO DAILY 09/17/15 [History] traMADol [Ultram] 50 mg PO QID PRN 03/16/16 [History] Losartan [Cozaar] 100 mg PO DAILY 05/23/16 [History] Nebivolol [Bystolic] 10 mg PO DAILY 05/23/16 [History] amLODIPine Besylate [Amlodipine Besylate] 5 mg PO DAILY 05/23/16 [History] Past Medical History Cardiovascular History: Reports: Hypertension, SOB on exertion Gastrointestinal History: Reports: Chronic diarrhea, Colon polyp, Hemorrhoids, Irritable bowel syndrome Musculoskeletal History: Reports: Arthritis, Back pain, chronic, Neck pain, chronic Other Musculoskeletal History: bulging disc in neck Neurological History: Reports: Migraines Psychiatric History: Reports: Anxiety, Depression Endocrine/Metabolic History: Reports: Obesity/BMI 30+ - Infectious Disease History Infectious Disease History: Reports: Chicken pox - Past Surgical History Cardiovascular Surgical History: Reports: None GI Surgical History: Reports: Colonoscopy, Polypectomy Endocrine Surgical History: Reports: None Neurological Surgical History: Reports: C-Spine, Spinal fusion, Other (see below ) Other Neurological Surgeries/Procedures: L4-L5 disc replacement Musculoskeletal Surgical History: Reports: Ganglion cyst, Other (see below) Other Musculoskeletal Surgeries/Procedures:: disc replacement L4,L5 2011. neck fusion c-spine June 30 2016 Social & Family History - Family History Family Medical History: Noncontributory Cardiac: Reports: High cholesterol, Hypertension GI: Reports: Other (see below) Other GI Family History: colitis Oncologic: Reports: Skin - Tobacco Use Smoking Status *Q: Former Smoker Years of Tobacco use: 12 Used Tobacco, but Quit: Yes Month Tobacco Last Used: 06/2016 Second Hand Smoke Exposure: No - Caffeine Use Caffeine Use: Reports: Soda - Alcohol Use Days Per Week of Alcohol Use: 1 Number of Drinks Per Day: 3 Total Drinks Per Week: 3 - Recreational Drug Use Recreational Drug Use: No Drug Use in Last 12 Months: Yes Recreational Drug Type: Reports: Other (see below) Recreational Drug Use Frequency: Not Used In Over 5 Months ED ROS GENERAL - Review of Systems Review Of Systems: See Below Constitutional: Reports: No Symptoms HEENT: Reports: No Symptoms Respiratory: Reports: No Symptoms Cardiovascular: Reports: No Symptoms Endocrine: Reports: No Symptoms GI/Abdominal: Reports: No Symptoms : Reports: No Symptoms Musculoskeletal: Reports: Other ( marked cervical pain. ) ED EXAM, UPPER BACK/NECK PAIN - Physical Exam Exam: See Below Text/Narrative:: pt arrived with increased cervical pain .he is concerned about an infection. He has had an addiction problem/ He has seen Dr Desouza who has given him a 1 week supply of tramodol and he was scheduled to go to [place]. 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 Exam Limited By: No Limitations General Appearance: Alert, Anxious Ears Exam: Normal External Exam Nose Exam: Normal Inspection Throat/Mouth Exam: Normal Inspection Head Exam: Atraumatic Neck Exam: Other ( Pt is very tender over the cervical area. He has no bruising or redness present. ) Cardiovascular/Respiratory: Regular Rate, Rhythm GI/Abdominal: Soft, Non-Tender (Male) Exam: Deferred Rectal (Males) Exam: Deferred Extremities: Normal Inspection Neurologic: Alert, Oriented x 3 Course - Vital Signs Last Recorded V/S: Last Vital Signs Temp 36.2 C 07/29/16 13:10 Pulse 78 07/29/16 15:49 Resp 16 07/29/16 15:49 BP 121/83 07/29/16 15:49 Pulse Ox 98 07/29/16 15:49 - Orders/Labs/Meds Orders: Active Orders 24 hr Category Date Time Status Cervical Spine wo Cont [CT] Stat Exams 07/29/16 14:55 Taken Labs: Laboratory Tests 07/29/16 07/29/16 07/29/16 Range/Units 14:27 14:27 14:27 WBC 9.5 (4.5-11.0) K/uL RBC 5.24 (4.30-5.90) M/uL Hgb 15.1 H (12.0-15.0) g/dL Hct 44.3 (40.0-54.0) % MCV 85 (80-98) fL MCH 29 (27-31) pg MCHC 34 (32-36) % Plt Count 329 (150-400) K/uL Neut % (Auto) 56 (36-66) % Lymph % (Auto) 29 (24-44) % [place] % (Auto) 14 H (2-6) % Eos % (Auto) 1 L (2-4) % Baso % (Auto) 0 (0-1) % ESR 16 (0-20) mm/hr Sodium 141 (140-148) mmol/L Potassium 4.1 (3.6-5.2) mmol/L Chloride 102 (100-108) mmol/L Carbon Dioxide 32 (21-32) mmol/L Anion Gap 7.5 (5.0-14.0) mmol/L BUN 13 (7-18) mg/dL Creatinine 1.1 (0.8-1.3) mg/dL Est Cr Clr Drug Dosing 92.17 mL/min Estimated GFR (MDRD) > 60 (>60) Glucose 110 H (74-106) mg/dL Calcium 8.1 L (8.5-10.1) mg/dL Meds: Medications Discontinued Medications Generic Name Dose Route Start Last Admin Trade Name Freq PRN Reason Stop Dose Admin Hydroxyzine HCl 50 mg 07/29/16 14:28 07/29/16 14:47 Vistaril IM 07/29/16 14:29 50 mg ONETIME ONE Administration Ketorolac Tromethamine 60 mg 07/29/16 16:06 07/29/16 16:22 Toradol IM 07/29/16 16:07 60 mg ONETIME ONE Administration Meperidine HCl 75 mg 07/29/16 14:27 07/29/16 14:45 Demerol IM 07/29/16 14:28 75 mg ONETIME ONE Administration - Re-Assessments/Exams Free Text/Narrative Re-Assessment/Exam: 07/29/16 16:57 pt was found to have normal labs. His sed rate was normal. He had a cat scn of the spine which did not show any signs of infection. Departure - Departure Time of Disposition: 16:47 Disposition: Home, Self-Care 01 Condition: fair Clinical Impression: Fusion of spine, cervical region, Cervical pain - Discharge Information Referrals: Fidencio Desouza Sr, MD [Primary Care Provider] - Forms: ED Department Discharge Care Plan Goals: ice packs to the cervical area, cont with tramodol, follow up with Dr Desouza - My Orders Last 24 Hours: My Active Orders 07/29/16 14:55 Cervical Spine wo Cont [CT] Stat - Assessment/Plan Last 24 Hours: My Active Orders 07/29/16 14:55 Cervical Spine wo Cont [CT] Stat
[2016-07-29 15:51] VITALS: BP 121/83
[2016-07-29] MEDS ORDERED: Ketorolac 60 MG/2 ML SDV IM ONE (16:06)
== END 2016-07-29 17:03 | disposition home or self-care (01) ==
LOC: JP.ED 12:40
DX: M43.22 Fusion of spine, cervical region (principal); I10 Essential (primary) hypertension; M19.90 Unspecified osteoarthritis, unspecified site; F41.9 Anxiety disorder, unspecified; F32.9 Major depressive disorder, single episode, unspecified; E66.9 Obesity, unspecified; G43.909 Migraine, unspecified, not intractable, without status migrainosus; Z79.899 Other long term (current) drug therapy; Z87.891 Personal history of nicotine dependence
CPT/HCPCS: 36415; 72125; 80048; 85025; 85651; 96372; 99284; J1885; J2175; J3410; 99283

== ENCOUNTER 2016-07-31 17:17 | Emergency (ER) | payer BC, MEDICAID ==
[2016-07-31 17:21] VITALS: BP 145/95
[2016-07-31] MEDS ORDERED: Meperidine PF 100 MG/ML Syringe IM ONE (18:41)
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
== END 2016-07-31 18:59 | disposition home or self-care (01) ==
LOC: JP.ED 17:17
DX: F32.9 Major depressive disorder, single episode, unspecified (principal); F19.10 Other psychoactive substance abuse, uncomplicated; I10 Essential (primary) hypertension; M19.90 Unspecified osteoarthritis, unspecified site; F41.9 Anxiety disorder, unspecified; E66.9 Obesity, unspecified; Z68.41 Body mass index [BMI] 40.0-44.9, adult; Z98.890 Other specified postprocedural states; Z79.899 Other long term (current) drug therapy
CPT/HCPCS: 96372; 99284; J2175

== ENCOUNTER 2017-08-31 22:00 | Emergency (ER) | payer BC ==
[2017-08-31] MEDS ORDERED: cefTRIAXone 1 GM in Sodium Chloride 0.9% 50 ML IV ONE (23:09)
[2017-08-31] MEDS ORDERED: Sodium Chloride 0.9% 10 ML Syringe FLUSH PRN (23:09)
[2017-08-31] MEDS ORDERED: Ketorolac 30 MG/ML SDV IVPUSH ONE (23:10)
--- NOTE | 2017-08-31 23:15 | EDM.PDOC ---
ED HPI GENERAL MEDICAL PROBLEM - General Chief Complaint: Cardiovascular Problem Stated Complaint: CELSA BLOOD PRESSURE IS HIGH Time Seen by Provider: 08/31/17 22:30 Source of Information: Reports: Patient History Limitations: Reports: No Limitations - History of Present Illness INITIAL COMMENTS - FREE TEXT/NARRATIVE: 42-year-old male has had a head cold, generalized malaise and nausea with a headache for the past several days. He saw his primary care doctor today was prescribed an antibiotic, prednisone and a blood pressure medication but he did not fill the prescriptions. He said he "didn't get to the pharmacy in time". He came in tonight because he has a lot of facial pressure and nausea and just doesn't want to suffer another night. He is also concerned that his blood pressure continues to be elevated running around 150/110. It is now 137/102. No significant cough or shortness of breath. Onset: Gradual (Over the past 3 days) Severity: Moderate Associated Symptoms: Reports: Headaches, Nausea/Vomiting, Other (Headaches, sinus pressure). Denies: Chest Pain, Cough, Fever/Chills, Shortness of Breath Chest Pain Score (Numeric/FACES): 1 - Related Data Allergies Allergy/AdvReac Type Severity Reaction Status Date / Time No Known Allergies Allergy Verified 08/31/17 22:30 Home Meds: Home Meds Acetaminophen [Tylenol Extra Strength] 1,000 mg PO Q6H PRN 12/03/13 [History] DULoxetine [Cymbalta] 120 mg PO DAILY 09/17/15 [History] Buprenorphine HCl/Naloxone HCl [Suboxone 4 mg-1 mg Sl Film] 1 dose PO BID [History] Diltiazem HCl [Cardizem LA] 1 tab PO DAILY 08/31/17 [History] Losartan [Cozaar] 1 tab PO DAILY 08/31/17 [History] Sulfamethoxazole/Trimethoprim [Sulfamethoxazole-Tmp Ds Tablet] 1 tab PO ASDIRECTED 08/31/17 [History] methylPREDNISolone [Methylprednisolone] 4 mg PO ASDIRECTED 08/31/17 [History] Past Medical History Cardiovascular History: Reports: Hypertension, SOB on Exertion Gastrointestinal History: Reports: Chronic Diarrhea, Colon Polyp, Hemorrhoids, Irritable Bowel Syndrome Musculoskeletal History: Reports: Arthritis, Back Pain, Chronic, Neck Pain, Chronic Other Musculoskeletal History: bulging disc in neck Neurological History: Reports: Migraines Psychiatric History: Reports: Addiction, Anxiety, Depression Endocrine/Metabolic History: Reports: Obesity/BMI 30+ - Infectious Disease History Infectious Disease History: Reports: Chicken Pox - Past Surgical History Neurological Surgical History: Reports: C-Spine, Spinal Fusion Musculoskeletal Surgical History: Reports: Ganglion Cyst, Other (See Below) Other Musculoskeletal Surgeries/Procedures:: neck fusion June 2016, back surgery 2011 Social & Family History - Family History Family Medical History: Noncontributory Cardiac: Reports: High Cholesterol, Hypertension GI: Reports: Other (See Below) Other GI Family History: colitis Oncologic: Reports: Skin - Tobacco Use Smoking Status *Q: Never Smoker - Caffeine Use Caffeine Use: Reports: Soda - Recreational Drug Use Recreational Drug Use: Yes Recreational Drug Type: Reports: Other (see below) Other Recreational Drug Type: opiates ED ROS GENERAL - Review of Systems Review Of Systems: See Below Constitutional: Reports: Malaise. Denies: Fever, Chills HEENT: Reports: Sinus Problem. Denies: Vision Change Respiratory: Denies: Shortness of Breath, Cough Cardiovascular: Denies: Chest Pain GI/Abdominal: Reports: Nausea. Denies: Abdominal Pain, Vomiting : Reports: No Symptoms Musculoskeletal: Reports: Muscle Pain (Some generalized achiness) Skin: Reports: No Symptoms Neurological: Reports: Headache ED EXAM, GENERAL - Physical Exam Exam: See Below Exam Limited By: No Limitations General Appearance: Alert, No Apparent Distress Eye Exam: Bilateral Eye: EOMI Throat/Mouth: Normal Inspection Head: Sinus Tenderness (Reacts with tenderness to percussion of both maxillary sinuses) Respiratory/Chest: No Respiratory Distress, Lungs Clear Cardiovascular: Regular Rate, Rhythm, Tachycardia (He was initially tachycardic but after visiting a while he normalized to near 100) GI/Abdominal: Non-Tender Neurological: Alert, Oriented, No Motor/Sensory Deficits Psychiatric: Normal Affect, Normal Mood Skin Exam: Warm, Dry Course - Vital Signs Last Recorded V/S: Last Vital Signs Temp 98.4 F 08/31/17 22:29 Pulse 127 H 08/31/17 23:18 Resp 16 08/31/17 23:18 BP 137/102 H 08/31/17 23:18 Pulse Ox 97 08/31/17 23:18 - Orders/Labs/Meds Orders: Active Orders 24 hr Category Date Time Status Saline Lock Insert [OM.PC] Routine Oth 08/31/17 23:09 Ordered Meds: Medications Discontinued Medications Generic Name Dose Route Start Last Admin Trade Name Marjorie PRN Reason Stop Dose Admin Ceftriaxone Sodium 1 gm/ 50 mls @ 100 mls/hr 08/31/17 23:09 08/31/17 23:36 Sodium Chloride IV 08/31/17 23:38 100 mls/hr ONETIME ONE Administration Ketorolac Tromethamine 30 mg 08/31/17 23:10 08/31/17 23:34 Toradol IVPUSH 08/31/17 23:11 30 mg ONETIME ONE Administration Sodium Chloride 10 ml 08/31/17 23:09 08/31/17 23:35 Saline Flush FLUSH 10 ml ASDIRECTED PRN Administration Keep Vein Open - Re-Assessments/Exams Free Text/Narrative Re-Assessment/Exam: 08/31/17 23:13 An IV was started and the patient was given 1 g of Rocephin along with 30 mg of IV Toradol. He was encouraged to fill the prescriptions tomorrow that he was given today and take them as directed. Departure - Departure Time of Disposition: 00:08 Disposition: Home, Self-Care 01 Condition: Good Clinical Impression: Sinusitis Qualifiers: Sinusitis location: maxillary Chronicity: acute Recurrence: not specified as recurrent Qualified Code(s): J01.00 - Acute maxillary sinusitis, unspecified Instructions: Sinusitis, Adult, [id number] Referrals: Fidencio Desouza Sr, MD [Primary Care Provider] - Forms: ED Department Discharge Care Plan Goals: Drink lots of water, rest, take your medications as prescribed and recheck in the next 48-72 hours if not improving satisfactorily. - My Orders Last 24 Hours: My Active Orders 08/31/17 23:09 Saline Lock Insert [OM.PC] Routine - Assessment/Plan Last 24 Hours: My Active Orders 08/31/17 23:09 Saline Lock Insert [OM.PC] Routine
[2017-08-31 23:19] VITALS: BP 137/102
== END 2017-09-01 00:08 | disposition home or self-care (01) ==
LOC: JP.ED 22:00
DX: J01.00 Acute maxillary sinusitis, unspecified (principal); I10 Essential (primary) hypertension; F41.9 Anxiety disorder, unspecified; F32.9 Major depressive disorder, single episode, unspecified; M19.90 Unspecified osteoarthritis, unspecified site; Z79.899 Other long term (current) drug therapy
CPT/HCPCS: 96374; 99284; J0696; J1885; J7050